=== PATIENT | female | born 1985 | race Caucasian/White ===

== ENCOUNTER 2020-08-31 22:04 | Inpatient (IN) | payer BC ==
[~2020-08-31] VITALS: Ht 165.1 cm; Wt 77.3 kg
[~2020-08-31 22:04] MED LIST: BCP TD
[2020-08-31 22:30] VITALS: TEMP 98.2
--- NOTE | 2020-08-31 22:30 | NUR ---
G1 at 40.5 weeks gestation to LDR3. She states that was seen by the communications manager Audrey during this and has been laboring at home with her. She states that she has been completely dilated since 1700 and has been pushing off and on since then. She states that she has not been able to void since this morning and that Audrey attempted to catherize her but failed. She reports good movement and denies leaking of fluid or bleeding. Patient changed into gown and wedged to left side in bed. EFMs explained and applied. FHR 140 bpm and reactive. CTX q2-3 minutes per toco, patient very controlled through them. Dr. Flood to room. SVE - complete/+1. Plan of care reviewed. 2225 IV started in left hand, labs drawn from site. [address] Flood - 1900cc clear yellow urine returned. 2245 Patient begins to push with contractions. 2250 Pitocin started at 2mu per orders and protocol. Patient continues to push with contractions, Dr. Flood remains on unit.
[2020-08-31 22:53] VITALS: BP 158/102; PULSE 106
[2020-08-31 23:00] VITALS: BP 157/100; PULSE 100
[2020-08-31 23:06] LABS: BASO % 0.3 % (0.0-2.0); EOS % 0.1 % (0-4.0); GRAN # 12.2 (1.4-6.5); GRAN % 86.4 % (42.2-75.2); HEMOGLOBIN 10.3 g/dl (12.5-16.0); LYMPH # 0.8 (1.2-3.4); LYMPH % 5.4 % (20.0-51.0); MEAN CELL VOLUME 89 fl (80.0-100.0); MEAN CORPUSCULAR HEMOGLOBIN 30 pg (27.0-31.0); MEAN CORPUSCULAR HGB CONC 34 g/dl (33.0-37.0); MONO # 0.9 (0.1-0.6); MONO % 6.5 % (1.7-9.3); PLATELET COUNT 288 K/mm3 (130-400); RED BLOOD COUNT 3.44 M/mm3 (4.10-5.30); REDCELL DISTRIBUTION WIDTH-CV 14.9 % (11.5-14.5)
[2020-08-31 23:07] LABS: HEMATOCRIT 30.5 % (37.0-47.0)
[2020-08-31 23:15] VITALS: BP 162/82; PULSE 107
[2020-08-31 23:30] VITALS: BP 140/94; PULSE 105
[2020-09-01] VITALS (38 sets, daily range): BP systolic 79–164; BP diastolic 47–91; PULSE 88–134; TEMP 98–99.6
[2020-09-01] MEDS ORDERED: PERCOCET 325 MG1 TA2 PO (01:24)
[2020-09-01] MEDS ORDERED: MOTRIN 800800 MG/TAB PO (01:24)
--- NOTE | 2020-09-01 01:30 | NUR ---
0100 Dr. Flood to room to evaluate pushing. 0115 Dr. Flood discusses with patient due to failure to descend, patient and spouse agree and is called. Pitocin turned off.
--- NOTE | 2020-09-01 01:40 | NUR ---
Patient ambulatory to OR.
[2020-09-01 09:52] LABS: MEAN CELL VOLUME 90 fl (80.0-100.0); MEAN CORPUSCULAR HGB CONC 34 g/dl (33.0-37.0); MEAN PLATELET VOLUME 10.1 fl (7.4-10.4); PLATELET COUNT 207 K/mm3 (130-400); REDCELL DISTRIBUTION WIDTH-CV 14.9 % (11.5-14.5)
[2020-09-01 10:03] LABS: ALBUMIN 2.4 gm/dL (3.5-5.0); BILIRUBIN,TOTAL 0.4 mg/dL (0.0-1.0); CALCIUM 8.1 mg/dL (8.4-10.2); CREATININE, serum 0.88 (0.52-1.25); POTASSIUM 3.8 mmol/L (3.4-5.0); TOTAL PROTEIN 4.8 gm/dL (6.4-8.2)
[2020-09-01 10:42] LABS: MEAN CORPUSCULAR HEMOGLOBIN 31 pg (27.0-31.0)
[2020-09-01 10:43] LABS: HEMATOCRIT 21.5 % (37.0-47.0)
[2020-09-01 10:45] LABS: HEMOGLOBIN 7.4 g/dl (12.5-16.0)
[2020-09-01 11:44] LABS: MEAN CELL VOLUME 92 fl (80.0-100.0); MEAN CORPUSCULAR HGB CONC 33 g/dl (33.0-37.0); MEAN PLATELET VOLUME 10.3 fl (7.4-10.4); PLATELET COUNT 305 K/mm3 (130-400); RED BLOOD COUNT 1.84 M/mm3 (4.10-5.30); REDCELL DISTRIBUTION WIDTH-CV 15.4 % (11.5-14.5)
[2020-09-01 12:14] LABS: BILIRUBIN,TOTAL 0.4 mg/dL (0.0-1.0); CALCIUM 7.9 mg/dL (8.4-10.2); CREATININE, serum 1.19 (0.52-1.25); POTASSIUM 3.8 mmol/L (3.4-5.0); TOTAL PROTEIN 4.2 gm/dL (6.4-8.2)
[2020-09-01 12:17] LABS: MEAN CORPUSCULAR HEMOGLOBIN 30 pg (27.0-31.0)
[2020-09-01 12:20] LABS: HEMATOCRIT 16.9 % (37.0-47.0); HEMOGLOBIN 5.6 g/dl (12.5-16.0)
--- NOTE | 2020-09-01 13:31 | NUR ---
0930 PATIENT SITS ON EDGE OF BED AND THEN AMBULATES TO BATHRROM WITHOUT DIZZINESS OR ANY PROBLEMS. BLEEDING SMALL AMOUNT NOTED. RAHMAN REMOVED AND PERICARE DONE AT THIS TIME. PATIENT TOLERATES. TEACHING DONE WITH PATIENT AND ON INCREASE BLEEDING AND TO NOTIFY NURSE WITH ANY CONCERNS.
--- NOTE | 2020-09-01 13:33 | NUR ---
1044 PATIENT CALLS OUT AND STATES NEEDS NURSE NOW, HAS HAD LARGE AMOUNT OF BLEEDING AT THIS TIME. DR EDMOND AT BEDSIDE TALKING TO FAMILY ABOUT BABY. THIS NURSE TO BEDSIDE. LARGE AMOUNT OF BLOOD ON FLOOR AND BENCH CUSHION. ASSISTED PATIENT TO BATHROOM TO ASSESS BLEEDING AT THIS TIME.
[2020-09-01 13:49] LABS: ANISOCYTOSIS 1+; BAND 34 % (0-10); LYMPHOCYTE 12 % (20.0-51.0); MYELOCYTE 2 % (0-0); PLATELET ESTIMATE NORMAL (NORMAL)
[2020-09-01 13:53] LABS: METAMYELOCYTE 0 % (0-0); NEUTROPHILS 46 % (42.0-75.2)
--- NOTE | 2020-09-01 14:03 | NUR ---
1050 ASSISTED PATIENT TO BED TO ASSESS BLEEDING AND FUNDUS, LARGE AMOUNT OF BLOOD AND CLOTS REMOVED WITH FUNDUS MASSAGE. BP 82/[address] RADER AT BEDSIDE ALONG WITH A JEANE RN FOR ASSISTANCE. LAB CALLED WITH HGH VALUE OF 7.4 AT THIS TIME. PATIENT PALE AND DIZZY. M[place]ER[place] PO GIVEN PER DR. RADER ORDER AND PERCOCET 1 TABLET FOR DISCOMFORT. 1100 ANOTHER LARGE AMOUNT OF BLOOD WITH LARGE CLOTS REMOVED AT THIS TIME WITH FUNDUS MASSAGE. CYTOTEC 800 MG RECTALLY GIVEN PER DR. RADER AT THIS TIME. IV 1000CC LR BOLUS HUNG AT THIS TIME WITH PRESSURE BAG. 1105 IV 18 GAUGE STARTED IN RIGHT HAND AT THIS TIME BY A JEANE RN AND LABS DRAWN AND TO LAB AT THIS TIME. BP 79/48 HR 134. PATIENT VERY DIAPHORETIC, PALE,BODY SHAKY AT THIS TIME. PATIENT STATES" I'M VERY SCARED, I DONT WANT ANYTHING BAD TO HAPPEN" ENCOURAGED PATIENT TO TAKE SLOW DEEP BREATHS AND CONTINUE TO TALK TO ME. WARM BLANKETS APPLIED TO PATIENT AT THIS TIME. 1107 HESPAN 500CC BOLUS HUNG IN RIGHT HAND AT THIS TIME. DR RADER REMAINS AT BEDSIDE. PATIENT VERY SUPPORTIVE AT BEDSIDE.
--- NOTE | 2020-09-01 14:17 | NUR ---
1200 RAHMAN CATH REPLACED AT THIS TIME. MARGARITO MACDONALD AND SCD APPLIED AT THIS TIME ALSO. FUNDUS FIRM AT THIS TIME AND PATIENT STATES SHE IS FEELING BETTER. BP 117/60 HR 132 T 98.5
--- NOTE | 2020-09-01 14:21 | NUR ---
1250 1ST BAG PRBC STARTED AT THIS TIME UNIT #[id number]. VS WNL. STARTED AT 50 CC HR FOR FIRST 15MIN THEN INCREASED TO 200 CC/HR TOLERATES WELL NO SIGNS OR SYMPTOMS OF REACTION AT THIS TIME. BLOOD INFUSING INTO RIGHT HAND 1350 FFP # [id number] STARTED AT THIS TIME AT 50 CC/HR IN LEFT WRIST. 1410 FFP RATE INCREASED TO 150/HR PATIENT TOLERATES WELL. DENIES NEEDS. RESTING WITH EYES CLOSED.
--- NOTE | 2020-09-01 15:15 | NUR ---
1450 1STBAG RBC FINISHED AND FFP FINISHED. BOTH LINES FLUSHED AT THIS TIME. FUNDUS FIRM AND MINIMAL BLEEDING NOTED. BEAR HUGGER REMOVED AND ALL BLANKETS BUT ONE REMOVED. PATIENT FEELS WARM. TMP 99.4. ALL ABOVE REPORTED TO DR RADER. ORDERS TO CONTINUE WITH LAST BAG RBC. 1450 2ND BAG RBC STARTED AT THIS TIME AT 50 CC/HR PER PROTOCOL. 1510 NO SIGNS OF REACTION. RBC RATE INCREASED TO 200CC/HR.
[2020-09-02] VITALS (13 sets, daily range): BP systolic 102–130; BP diastolic 56–83; PULSE 88–114; TEMP 97.7–98.7
[2020-09-02 07:32] LABS: MEAN CELL VOLUME 92 fl (80.0-100.0); MEAN CORPUSCULAR HGB CONC 34 g/dl (33.0-37.0); RED BLOOD COUNT 1.91 M/mm3 (4.10-5.30); REDCELL DISTRIBUTION WIDTH-CV 15.4 % (11.5-14.5)
[2020-09-02 07:58] LABS: MEAN CORPUSCULAR HEMOGLOBIN 31 pg (27.0-31.0)
[2020-09-02 08:01] LABS: HEMATOCRIT 17.6 % (37.0-47.0); PLATELET COUNT 138 K/mm3 (130-400)
--- NOTE | 2020-09-02 08:12 | NUR ---
[address] TO [address] TOUSSAINT AND ORDERS GIVEN FOR 2 MORE UNITS
--- NOTE | 2020-09-02 11:05 | NUR ---
1048 PATIENT VERY EMOTIONAL TODAY, TEARY EYED AND EXHAUSTED. THIS NURSE HELP PATIENT WITH . SNS FOR 12 CC WITH ON LEFT SIDE.
[2020-09-03 03:40] VITALS: BP 126/80; PULSE 105; TEMP 98.1
[2020-09-03 07:03] LABS: MEAN CELL VOLUME 90 fl (80.0-100.0); MEAN CORPUSCULAR HGB CONC 34 g/dl (33.0-37.0); MEAN PLATELET VOLUME 9.5 fl (7.4-10.4); PLATELET COUNT 209 K/mm3 (130-400); RED BLOOD COUNT 2.45 M/mm3 (4.10-5.30); REDCELL DISTRIBUTION WIDTH-CV 15.9 % (11.5-14.5)
[2020-09-03 07:06] VITALS: BP 118/76; PULSE 100; TEMP 98.2
--- NOTE | 2020-09-03 07:19 | NUR ---
0710 COVID SWAB NEGATIVE ISOLATION DISCONTINUED
[2020-09-03 07:22] LABS: HEMOGLOBIN 7.5 g/dl (12.5-16.0); MEAN CORPUSCULAR HEMOGLOBIN 31 pg (27.0-31.0)
[2020-09-03 09:56] LABS: ANISOCYTOSIS 1+; BAND 15 % (0-10); EOSINOPHIL 2 % (0-4); LYMPHOCYTE 8 % (20.0-51.0); NEUTROPHILS 72 % (42.0-75.2); PLATELET ESTIMATE NORMAL (NORMAL)
[2020-09-03 17:05] VITALS: BP 116/76; PULSE 78; TEMP 98.3
[2020-09-03 19:30] VITALS: BP 134/81; PULSE 101; TEMP 98.3
[2020-09-04 07:36] LABS: MEAN CELL VOLUME 91 fl (80.0-100.0); MEAN CORPUSCULAR HGB CONC 34 g/dl (33.0-37.0); PLATELET COUNT 217 K/mm3 (130-400); RED BLOOD COUNT 2.51 M/mm3 (4.10-5.30); REDCELL DISTRIBUTION WIDTH-CV 15.8 % (11.5-14.5)
[2020-09-04 07:45] VITALS: BP 116/78; PULSE 98; TEMP 98.4
[2020-09-04 07:53] LABS: HEMATOCRIT 22.9 % (37.0-47.0); HEMOGLOBIN 7.7 g/dl (12.5-16.0); MEAN CORPUSCULAR HEMOGLOBIN 31 pg (27.0-31.0)
[2020-09-04 08:42] LABS: BAND 10 % (0-10); EOSINOPHIL 2 % (0-4); LYMPHOCYTE 12 % (20.0-51.0); METAMYELOCYTE 1 % (0-0); NEUTROPHILS 73 % (42.0-75.2); PLATELET ESTIMATE NORMAL (NORMAL)
--- NOTE | 2020-09-04 09:21 | NUR ---
Initial visit attempt; Family resting, Transfill Technician left card of congratulations for the of their daughter and information regarding the availability of Spiritual Care at our hospital.
[2020-09-04 11:17] LABS: HIV 1/2 Antibodies Non-Reactive; HIV-1p24 Antigen Non-Reactive
[2020-09-04 14:23] LABS: COLLECTION METHOD CATHETER
[2020-09-04 14:41] LABS: PH 6 (5-8); SQUAMOUS EPITHELIAL None Seen /hpf; URINE APPEARANCE Clear; URINE BACTERIA None Seen /hpf; URINE BILIRUBIN Negative (NEGATIVE); URINE BLOOD 2+ (NEGATIVE); URINE COLOR Straw; URINE GLUCOSE Negative (NEGATIVE); URINE KETONE Negative (NEGATIVE); URINE LEUKOCYTE ESTERASE Negative (NEGATIVE); URINE NITRATE Negative (NEGATIVE); URINE PROTEIN(semi-quant) Negative (NEGATIVE); URINE RBC 0-2 /hpf; URINE UROBILINOGEN Negative (NEGATIVE); URINE WBC 0-2 /hpf
[2020-09-04 16:17] VITALS: BP 127/78; PULSE 101; TEMP 98.4
--- NOTE | 2020-09-04 19:20 | NUR ---
1911- DISCHARGE INSTRUCTIONS REVIEWED WITH PT AND SPOUSE, QUESTIONS ENCOURAGED AND ANSWERED. UNDERSTANDING VEBALIZED. SPOUSE TO [place] OF ESTATE PRESCRIPTIONS AT THIS TIME PT WILL BE GOING TO [facility] STATUS. BABY BRACELET MATCH WITH PT, FOOTPRINT SHEET SIGNED TO [facility] STATUS. PT REQUESTS FLU AND TDAP VACCINE PRIOR TO DISCHARGE SHE NOT RECEIVED THEM DURING THE , CONSENT WAS SIGNED AND VACCINES ADMINISTERED. MMR STATUS UNKNOWN, PT INSTRUCTED TO DISCUSS WITH PHYSICIAN AT 2 WEEK APPOINTMENT, UNDERSTANDING VERBALIZED. 1919- PT IN ROOM HOLDING BABY, DISCHARGED TO [facility]ARDER STATUS.
[2020-09-04 22:13] LABS: HEPATITIS B SURFACE ANTIGEN Negative (Negative)
== END 2020-09-04 19:20 | disposition home or self-care (01) | DRG 787 ==
LOC: LDRO 22:04 → OB 22:30 → LDR 22:30 → OB 09-01 05:53
PROVIDERS: Obstetrics & Gynecology; ADMIT Obstetrics & Gynecology
PROC: 10D00Z1 Extraction of Products of Conception, Low, Open Approach (ICD-10-PCS; principal; 2020-08-31)
PROC: 0KQM0ZZ Repair Perineum Muscle, Open Approach (ICD-10-PCS; 2020-08-31)
DX: O62.0 Primary inadequate contractions (principal); O72.1 Other immediate postpartum hemorrhage; D62 Acute posthemorrhagic anemia; O48.0 Post-term pregnancy; Z37.0 Single live birth; O77.0 Labor and delivery complicated by meconium in amniotic fluid; O13.4 Gestational [pregnancy-induced] hypertension without significant proteinuria, complicating childbirth; O90.81 Anemia of the puerperium; Z3A.42 42 weeks gestation of pregnancy
CPT/HCPCS: J0690; J2370; J2405; J2590; J3010; J7040; J7120; P9016

== ENCOUNTER 2021-07-12 17:15 | Emergency (ER) | payer BC ==
[~2021-07-12] VITALS: Ht 165.1 cm; Wt 65.9 kg
[~2021-07-12 17:15] MED LIST changes: +MOTRIN 800800 MG/TAB PO; +PERCOCET 325 MG1 TA2 PO
[2021-07-12 17:33] VITALS: TEMP 98.4
[2021-07-12 19:36] VITALS: BP 113/77; PULSE 72
== END 2021-07-12 19:36 | disposition home or self-care (01) ==
LOC: COL.ER 17:15
DX: Z20.3 Contact with and (suspected) exposure to rabies (principal)

== ENCOUNTER 2021-07-26 16:00 | Outpatient (RCR) | payer BC ==
[2021-07-15 10:11] VITALS: BP 108/65; PULSE 76; TEMP 98.4
[2021-07-19 16:00] VITALS: BP 111/71; PULSE 91; TEMP 98.5
[~2021-07-26] VITALS: Ht 165.1 cm; Wt 65.0 kg
[2021-07-26 16:59] VITALS: BP 139/80; PULSE 74; TEMP 97.7
== END 2021-07-26 17:06 | disposition home or self-care (01) ==
LOC: EUO 16:00
DX: Z20.3 Contact with and (suspected) exposure to rabies (principal)